=== PATIENT | female | born 1960 | race Two or more races ===

== ENCOUNTER 2017-06-18 00:21 | Inpatient (IN) | payer MEDICAID ==
[~2017-06-18] VITALS: Ht 139.7 cm; Wt 56.5 kg
[2017-06-18 01:28] LABS: Basophils # (auto) 0 uL; Basophils % (auto) 0.4 % (0.0-2.0); Eosinophils # (auto) 0.1 uL; Eosinophils % (auto) 1.5 % (0.0-7.0); Hematocrit 44.1 % (36.0-46.0); Hemoglobin 14.7 g/dL (12.2-16.2); Lymphocytes # (auto) 1.4 uL; Lymphocytes % (auto) 24.3 % (10.0-50.0); Mean Corpuscular Hemoglobin 31.7 pg (28.0-32.0); Mean Corpuscular Hgb Conc. 33.4 g/dL (32.0-36.0); Mean Corpuscular Volume 95.1 fL (80.0-100.0); Monocytes # (auto) 0.5 uL; Monocytes % (auto) 8.1 % (0.0-12.0); Neutrophils # (auto) 3.7 uL; Neutrophils % (auto) 65.7 % (37.0-80.0); Nucleated Red Blood Cells % 0.1 %; Platelet Count (auto) 210 10^3/uL (140-450); Red Blood Cells 4.64 10^6/uL (4.0-5.20); Red Cell Distribution Width 14.9 % (11.8-14.3); White Blood Cell 5.7 10^3/uL (4.4-10.8)
[2017-06-18 01:42] LABS: INR 0.87 (0.9-1.15); Partial Thromboplastin Time 25.7 sec (22.64-33.71); Prothrombin Time 9.5 sec (9.37-12.3)
[2017-06-18] MEDS ORDERED: SODIUM CHLORIDE 0.9% 1,000 ML IVB ONE (01:42)
[2017-06-18 01:46] LABS: Alanine Aminotransferase 17 U/L (13-56); Albumin 3.1 g/dL (3.4-5.0); Anion Gap 21 (5-15); Blood Alcohol < 3.0 mg/dL (0-5); Blood Urea Nitrogen 12 mg/dL (7-18); Calcium 8.6 mg/dL (8.5-10.1); Carbon Dioxide 14 mmol/L (21-32); Chloride 102 mmol/L (98-107); Magnesium 2.3 mg/dL (1.6-2.6); Potassium 3.6 mmol/L (3.5-5.1); Sodium 137 mmol/L (136-145)
[2017-06-18 01:49] LABS: Aspartate Aminotransferase 8 U/L (15-37); Bilirubin, Total 0.4 mg/dL (0.2-1.0); GFR African American 69 mL/min; GFR Non-African American 57 mL/min; Total Protein 7.3 g/dL (6.4-8.2)
[2017-06-18 01:56] LABS: Alkaline Phosphatase 241 U/L (45-117)
[2017-06-18 02:15] LABS: BUN/Creatinine Ratio 11.4
[2017-06-18 02:16] LABS: Glucose 638 mg/dL (74-106)
[2017-06-18 02:24] LABS: Urine Bacteria NONE SEEN /hpf (None Seen); Urine Blood Negative /uL (Negative); Urine Specific Gravity 1.024 (1.001-1.035); Urine WBC <1 /hpf (0 - 5)
[2017-06-18] MEDS ORDERED: SODIUM CHLORIDE 0.9% 1,000 ML IV ONE (02:30)
[2017-06-18] MEDS ORDERED: InsuLIN REG 1unit/0.01ml Soln (100units/ml) IV ONE (02:30)
[2017-06-18] MEDS ORDERED: InsuLIN R (HUMAN) 100 UNITS in SODIUM CHL 0.9% 99 ML IV SCH (02:32)
[2017-06-18 02:35] LABS: Amphetamine Screen, Urine NEGATIVE (NEGATIVE); Barbiturate Scree,Urine NEGATIVE (NEGATIVE); Benzodiazephine Screen, Urine NEGATIVE (NEGATIVE)
[2017-06-18 02:43] LABS: Alcohol, Urine < 3.0 mg/dL (0-5); Cannabinoid Screen, Urine NEGATIVE (NEGATIVE); Cocaine Screen, Urine POSITIVE (NEGATIVE); Opiate Scree,Urine NEGATIVE (NEGATIVE); Phencyclidine Screen, Urine NEGATIVE (NEGATIVE)
[2017-06-18] MEDS ORDERED: DEXTROSE (50%) 50ML SYRG IV PRN (02:45)
[2017-06-18] MEDS: ACCU-CHEK COMFORT CURVE STRIP VI SCH ×10 (03:15→23:56)
[2017-06-18] MEDS: SODIUM CHLORIDE 0.9% 1,000 ML IV SCH ×4 (03:52→21:58)
[2017-06-18] MEDS ORDERED: NITROGLYCERIN 0.4 MG SL TAB SL PRN (05:30)
[2017-06-18] MEDS ORDERED: TEMAZEPAM 15 MG CAP PO PRN (05:30)
[2017-06-18] MEDS ORDERED: ACETAMINOPHEN 325 MG TAB PO PRN (05:30)
[2017-06-18] MEDS ORDERED: MORPHINE SULFATE 4 MG/ML SYR/VIAL IV PRN (05:30)
[2017-06-18] MEDS ORDERED: ONDANSETRON HCL 4 MG/2 ML VIAL IV PRN (05:30)
[2017-06-18] MEDS ORDERED: SODIUM CHLORIDE 0.9% 500 ML IV ONE (05:30)
[2017-06-18] MEDS ORDERED: SODIUM CHLORIDE 0.9% 1,000 ML IV SCH ×2 (06:32→08:32)
[2017-06-18 06:41] LABS: BUN/Creatinine Ratio 14.5; Calcium 7.4 mg/dL (8.5-10.1)
[2017-06-18 06:47] LABS: Potassium 2.8 mmol/L (3.5-5.1)
[2017-06-18] MEDS: POTASSIUM CHL 20MEQ/100ML 100 ML IV SCH ×4 (08:28→15:36)
[2017-06-18] MEDS: FAMOTIDINE 20 MG TAB PO SCH ×2 (10:00→21:55)
[2017-06-18] MEDS: ENOXAPARIN SOD 40 MG/0.4 ML SYRINGE SC SCH (10:12)
[2017-06-18] MEDS ORDERED: INSULIN LANTUS (GLARGINE) 1 /0.01ml (100units/ml) SC ONE (12:00)
[2017-06-18] MEDS ORDERED: SOD CHL 0.9%/ KCL 40MEQ 1,000 ML IV SCH (12:00)
[2017-06-18] MEDS ORDERED: POTASSIUM CHL 10% (20 MEQ/15ML) 15ml ORAL SOLN PO ONE (12:00)
[2017-06-18] MEDS: InsuLIN REG 1unit/0.01ml Soln (100units/ml) SC SCH ×4 (12:00→23:56)
[2017-06-18 15:20] LABS: BUN/Creatinine Ratio 7.2; Potassium 4.4 mmol/L (3.5-5.1)
[2017-06-18 16:00] VITALS: BP 102/60
[2017-06-18 17:46] VITALS: BP 102/60
[2017-06-18 21:21] VITALS: BP 94/54
[2017-06-18 21:42] LABS: Calcium 7.8 mg/dL (8.5-10.1); Potassium 4.1 mmol/L (3.5-5.1)
[2017-06-18] MEDS: INSULIN LANTUS (GLARGINE) 1 /0.01ml (100units/ml) SC SCH (21:58)
[2017-06-18 22:02] LABS: BUN/Creatinine Ratio 8.4
[2017-06-19] MEDS: InsuLIN REG 1unit/0.01ml Soln (100units/ml) SC SCH ×3 (03:47→11:18)
[2017-06-19] MEDS: ACCU-CHEK COMFORT CURVE STRIP VI SCH ×3 (03:48→11:14)
[2017-06-19 05:24] VITALS: BP 92/59
[2017-06-19 05:45] LABS: Basophils # (auto) 0 uL; Basophils % (auto) 0.6 % (0.0-2.0); Eosinophils # (auto) 0.2 uL; Eosinophils % (auto) 2.4 % (0.0-7.0); Hematocrit 40.5 % (36.0-46.0); Lymphocytes # (auto) 3.4 uL; Lymphocytes % (auto) 41.6 % (10.0-50.0); Mean Corpuscular Hemoglobin 32.2 pg (28.0-32.0); Mean Corpuscular Hgb Conc. 34.6 g/dL (32.0-36.0); Mean Corpuscular Volume 93.1 fL (80.0-100.0); Monocytes # (auto) 0.6 uL; Monocytes % (auto) 7.1 % (0.0-12.0); Neutrophils % (auto) 48.3 % (37.0-80.0); Nucleated Red Blood Cells % 0.2 %; Platelet Count (auto) 182 10^3/uL (140-450); Red Blood Cells 4.35 10^6/uL (4.0-5.20); Red Cell Distribution Width 14.6 % (11.8-14.3); White Blood Cell 8.2 10^3/uL (4.4-10.8)
[2017-06-19 05:59] LABS: Albumin 2.1 g/dL (3.4-5.0); BUN/Creatinine Ratio 18.2; Calcium 8.1 mg/dL (8.5-10.1); Potassium 3.4 mmol/L (3.5-5.1)
[2017-06-19 06:02] LABS: Bilirubin, Total 0.4 mg/dL (0.2-1.0); Total Protein 5.5 g/dL (6.4-8.2)
[2017-06-19 06:41] VITALS: BP 101/65
[2017-06-19 07:58] VITALS: BP 99/59
[2017-06-19 08:00] VITALS: BP 99/59
[2017-06-19] MEDS: ENOXAPARIN SOD 40 MG/0.4 ML SYRINGE SC SCH (09:31)
[2017-06-19] MEDS: FAMOTIDINE 20 MG TAB PO SCH (09:31)
[2017-06-19] MEDS: INSULIN LANTUS (GLARGINE) 1 /0.01ml (100units/ml) SC SCH (09:35)
[2017-06-19] MEDS: SODIUM CHLORIDE 0.9% 1,000 ML IV SCH (09:36)
[2017-06-19] MEDS ORDERED: POTASSIUM CHL 20 Meq TABLET PO ONE (09:45)
[2017-06-19 12:09] VITALS: BP 90/54
[2017-06-19 13:17] VITALS: BP 90/54
== END 2017-06-19 14:25 | disposition home or self-care (01) | DRG 420 ==
LOC: ER 00:24 → TELE 00:25 → TELE-CENTR 16:03
PROVIDERS: ADMIT Nurse Practitioner; ATTEND Internal Medicine
DX: E11.10 Type 2 diabetes mellitus with ketoacidosis without coma (principal); G93.41 Metabolic encephalopathy; E44.0 Moderate protein-calorie malnutrition; F14.10 Cocaine abuse, uncomplicated; E86.0 Dehydration; F17.200 Nicotine dependence, unspecified, uncomplicated; D18.1 Lymphangioma, any site; I10 Essential (primary) hypertension; I70.0 Atherosclerosis of aorta; E87.6 Hypokalemia
CPT/HCPCS: 36415; 36600; 51702; 70450; 71045; 80048; 80053; 80307; 80320; 81001; 82010; 82805; 82962; 83036; 83735; 83930; 84100; 84484; 85025; 85610; 85730; 93005; 96361; 96365; 96372; 96375; 99291; J1815; J3480